=== PATIENT | male | born 1995 | race Caucasian/White ===

== ENCOUNTER 2016-12-17 10:02 | Emergency (ER) | payer BC ==
[2016-12-17] MEDS ORDERED: IOPAMIDOL-300 100 ML VIAL IVP ONE (11:12)
[2016-12-17] MEDS ORDERED: IPRATROPIUM/ALBUTEROL 3 ML NEB INH STA (11:37)
[2016-12-17] MEDS ORDERED: IPRATROPIUM/ALBUTEROL 3 ML NEB INH ONE (12:19)
== END 2016-12-17 13:28 | disposition home or self-care (01) ==
DX: R06.02 Shortness of breath (principal); Z98.1 Arthrodesis status; H66.003 Acute suppurative otitis media without spontaneous rupture of ear drum, bilateral
CPT/HCPCS: 36415; 71275; 80053; 83690; 84484; 85025; 93005; 93010; 94640; 99283; 99284; J7620; Q9967